=== PATIENT | female | born 1975 | race Two or more races ===

== ENCOUNTER → 2020-12-07 | Outpatient (CLI) | payer BC | END | disposition home or self-care (01) | LOC: XYW 15:17 | PROVIDERS: ATTEND Internal Medicine | DX: Z03.89 Encounter for observation for other suspected diseases and conditions ruled out (principal) | CPT/HCPCS: 71045; 78582; A9540; A9558 ==

== ENCOUNTER → 2020-12-11 | Outpatient (CLI) | payer BC ==
[2020-12-11 11:33] LABS: Potassium 3.8 mmol/L (3.5-5.1)
[2020-12-11 11:41] LABS: Albumin 3.8 g/dL (3.4-5.0); BUN/Creatinine Ratio 20.8; Bilirubin, Direct 0.3 mg/dL (0-0.2); Bilirubin, Total 1.2 mg/dL (0.2-1.0); Total Protein 7.7 g/dL (6.4-8.2)
[2020-12-11 13:08] LABS: Follicle Stimulating Hormone 36.13 IU/L (SEE BELOW); Leuteinizing Hormone 23.9 IU/L
[2020-12-12 07:07] LABS: RPR Non Reactive (Non Reactive)
== END | disposition home or self-care (01) ==
LOC: LAB 10:13
PROVIDERS: ATTEND Obstetrics & Gynecology
DX: N95.1 Menopausal and female climacteric states (principal); Z20.2 Contact with and (suspected) exposure to infections with a predominantly sexual mode of transmission
CPT/HCPCS: 36415; 80048; 80076; 82670; 83001; 83002; 84403; 84443; 86592; 86703

== ENCOUNTER → 2021-01-05 | Outpatient (CLI) | payer BC ==
[2021-01-05 12:01] LABS: Albumin 3.6 g/dL (3.4-5.0)
[2021-01-05 12:06] LABS: Bilirubin, Direct 0.2 mg/dL (0-0.2); Bilirubin, Total 0.7 mg/dL (0.2-1.0); Total Protein 7.3 g/dL (6.4-8.2)
== END | disposition home or self-care (01) ==
LOC: LAB 10:39
PROVIDERS: ATTEND Internal Medicine
DX: E78.5 Hyperlipidemia, unspecified (principal)
CPT/HCPCS: 36415; 80061; 80076

== ENCOUNTER → 2021-01-16 | Outpatient (CLI) | payer BC ==
[2021-01-16 14:07] LABS: Urine Bacteria FEW /hpf (None Seen); Urine Blood Negative /uL (Negative); Urine Hyaline Cast FEW /lpf (0 - 2); Urine Mucus FEW (None Seen); Urine Specific Gravity 1.025 (1.001-1.035); Urine WBC 3 /hpf (0 - 5)
[2021-01-16 14:39] LABS: BUN/Creatinine Ratio 14.5; Calcium 8.9 mg/dL (8.5-10.1); Potassium 4.3 mmol/L (3.5-5.1)
== END | disposition home or self-care (01) ==
LOC: LAB 13:40
PROVIDERS: ATTEND Internal Medicine
DX: R42 Dizziness and giddiness (principal); R10.9 Unspecified abdominal pain
CPT/HCPCS: 36415; 80048; 81001; 82150; 83690

== ENCOUNTER → 2021-02-06 | Outpatient (CLI) | payer BC | END | disposition home or self-care (01) | LOC: XY 08:20 | PROVIDERS: ATTEND Internal Medicine | DX: I51.7 Cardiomegaly (principal); E78.5 Hyperlipidemia, unspecified | CPT/HCPCS: 93306 ==

== ENCOUNTER 2021-03-22 10:18 | Day surgery (SDC) | payer BC ==
[2021-03-19 13:16] LABS: Basophils # (auto) 0 10 ^3/uL (0-0.2); Basophils % (auto) 0.6 % (0.0-2.0); Eosinophils # (auto) 0.2 10 ^3/uL (0-0.8); Eosinophils % (auto) 3.4 % (0.0-7.0); Hematocrit 37.7 % (36.0-46.0); Hemoglobin 12.9 g/dL (12.2-16.2); Lymphocytes # (auto) 2.3 10 ^3/uL (0.4-5.4); Lymphocytes % (auto) 34.1 % (10.0-50.0); Mean Corpuscular Hemoglobin 30.5 pg (28.0-32.0); Mean Corpuscular Hgb Conc. 34.2 g/dL (32.0-36.0); Mean Corpuscular Volume 89.1 fL (80.0-100.0); Monocytes # (auto) 0.5 10 ^3/uL (0-1.3); Monocytes % (auto) 7.4 % (0.0-12.0); Neutrophils # (auto) 3.7 10 ^3/uL (1.6-8.6); Neutrophils % (auto) 54.5 % (37.0-80.0); Nucleated Red Blood Cells % 0.1 %; Platelet Count (auto) 316 10^3/uL (140-450); Red Blood Cells 4.24 10^6/uL (4.0-5.20); Red Cell Distribution Width 13.4 % (11.8-14.3); White Blood Cell 6.7 10^3/uL (4.4-10.8)
[2021-03-19 13:26] LABS: Urine Bacteria NONE SEEN /hpf (None Seen); Urine Blood Negative /uL (Negative); Urine Specific Gravity 1.025 (1.001-1.035); Urine WBC 1 /hpf (0 - 5)
[2021-03-19 15:20] LABS: Albumin 3.7 g/dL (3.4-5.0); Calcium 8.8 mg/dL (8.5-10.1); Potassium 4.4 mmol/L (3.5-5.1)
[2021-03-19 15:23] LABS: Bilirubin, Total 0.4 mg/dL (0.2-1.0); Total Protein 7.5 g/dL (6.4-8.2)
[~2021-03-22] VITALS: Ht 170.2 cm; Wt 108.4 kg
[~2021-03-22 10:18] MED LIST: ASPI-231 PO; ATOR10TA PO; LISI20TA28 PO; METO25TA93 PO; PANT1INJ3 PO
[2021-03-22] MEDS ORDERED: LIDOCAINE VISCOUS 2% 15ML UD ONE (10:28)
[2021-03-22] MEDS ORDERED: SODIUM CHLORIDE LOCK 10 ML ONE (10:28)
[2021-03-22] MEDS: diphenhdrAMINE HCL 50 MG/1 ML VL ONE ×2 (11:57→12:00)
[2021-03-22] MEDS: fentaNYL CITRATE 100 MCG/2 ML VL ONE ×2 (11:57→12:00)
[2021-03-22] MEDS: MIDAZOLAM HCL 5 MG/ML-1ML VIAL ONE ×2 (11:57→12:00)
[2021-03-22 12:40] VITALS: BP 110/71
== END 2021-03-22 12:50 | disposition home or self-care (01) ==
LOC: GI 10:18
PROVIDERS: ATTEND Internal Medicine Gastroenterology
DX: K21.9 Gastro-esophageal reflux disease without esophagitis (principal); B37.81 Candidal esophagitis; I10 Essential (primary) hypertension; E78.00 Pure hypercholesterolemia, unspecified; G47.30 Sleep apnea, unspecified; Z20.822 Contact with and (suspected) exposure to COVID-19; Z79.82 Long term (current) use of aspirin; Z79.899 Other long term (current) drug therapy; Z88.2 Allergy status to sulfonamides; Z68.37 Body mass index [BMI] 37.0-37.9, adult
CPT/HCPCS: 36415; 43239; 80053; 81001; 81025; 84702; 85025; J1200; J2250; J3010; J7030; U0003; 99152

== ENCOUNTER → 2022-06-06 | Outpatient (CLI) | payer MEDICAID ==
[~2022-06-06] MED LIST changes: -ASPI-231 PO; +ASPI1TAB20 PO
[2022-06-06 10:22] LABS: Basophils # (auto) 0 10 ^3/uL (0-0.2); Basophils % (auto) 0.5 % (0.0-2.0); Eosinophils # (auto) 0.1 10 ^3/uL (0-0.8); Eosinophils % (auto) 2.1 % (0.0-7.0); Hematocrit 37.5 % (36.0-46.0); Hemoglobin 12.3 g/dL (12.2-16.2); Lymphocytes # (auto) 1.7 10 ^3/uL (0.4-5.4); Lymphocytes % (auto) 33.1 % (10.0-50.0); Mean Corpuscular Hemoglobin 27.2 pg (28.0-32.0); Mean Corpuscular Hgb Conc. 32.9 g/dL (32.0-36.0); Mean Corpuscular Volume 82.5 fL (80.0-100.0); Monocytes # (auto) 0.3 10 ^3/uL (0-1.3); Neutrophils # (auto) 3.1 10 ^3/uL (1.6-8.6); Neutrophils % (auto) 58.3 % (37.0-80.0); Red Blood Cells 4.54 10^6/uL (4.0-5.20); Red Cell Distribution Width 13.7 % (11.8-14.3); White Blood Cell 5.2 10^3/uL (4.4-10.8)
[2022-06-06 10:36] LABS: Calcium 9.2 mg/dL (8.5-10.1); Potassium 4.3 mmol/L (3.5-5.1)
[2022-06-06 10:46] LABS: Albumin 3.8 g/dL (3.4-5.0); BUN/Creatinine Ratio 18.8; Bilirubin, Total 0.5 mg/dL (0.2-1.0); Total Protein 7.1 g/dL (6.4-8.2)
== END | disposition home or self-care (01) ==
LOC: LAB 09:52
PROVIDERS: ATTEND Internal Medicine
DX: E66.9 Obesity, unspecified (principal); N91.2 Amenorrhea, unspecified
CPT/HCPCS: 36415; 80053; 80061; 83036; 85025

== ENCOUNTER → 2022-06-18 | Outpatient (CLI) | payer MEDICAID ==
[2022-06-18 10:29] LABS: Basophils # (auto) 0 10 ^3/uL (0-0.2); Basophils % (auto) 0.8 % (0.0-2.0); Eosinophils # (auto) 0.2 10 ^3/uL (0-0.8); Eosinophils % (auto) 3.9 % (0.0-7.0); Hematocrit 38.5 % (36.0-46.0); Hemoglobin 12.6 g/dL (12.2-16.2); Lymphocytes # (auto) 1.9 10 ^3/uL (0.4-5.4); Lymphocytes % (auto) 35.2 % (10.0-50.0); Mean Corpuscular Hemoglobin 26.7 pg (28.0-32.0); Mean Corpuscular Hgb Conc. 32.6 g/dL (32.0-36.0); Mean Corpuscular Volume 81.6 fL (80.0-100.0); Monocytes # (auto) 0.4 10 ^3/uL (0-1.3); Monocytes % (auto) 7.1 % (0.0-12.0); Neutrophils # (auto) 2.9 10 ^3/uL (1.6-8.6); Red Blood Cells 4.72 10^6/uL (4.0-5.20); Red Cell Distribution Width 13.8 % (11.8-14.3); White Blood Cell 5.5 10^3/uL (4.4-10.8)
[2022-06-18 11:34] LABS: Follicle Stimulating Hormone 52.6 IU/L (SEE BELOW); Leuteinizing Hormone 22.2 IU/L
== END | disposition home or self-care (01) ==
LOC: LAB 10:15
PROVIDERS: ATTEND Obstetrics & Gynecology
DX: N93.9 Abnormal uterine and vaginal bleeding, unspecified (principal)
CPT/HCPCS: 36415; 82670; 83001; 83002; 84403; 84443; 85025

== ENCOUNTER → 2022-09-03 | Outpatient (CLI) | payer MEDICAID ==
[2022-09-03 11:22] LABS: Cholesterol 137 mg/dL (< 200); HDL Cholesterol 51 mg/dL (40-59); LDL Cholesterol 84 mg/dL (< 100); Triglycerides 43 mg/dL (< 150)
== END | disposition home or self-care (01) ==
LOC: LAB 10:06
PROVIDERS: ATTEND Internal Medicine
DX: D17.71 Benign lipomatous neoplasm of kidney (principal); R73.03 Prediabetes
CPT/HCPCS: 36415; 80061; 82043; 83036

== ENCOUNTER 2022-09-17 13:12 | Day surgery (SDC) | payer MEDICAID ==
[2022-09-15 12:07] LABS: Basophils # (auto) 0 10 ^3/uL (0-0.2); Eosinophils # (auto) 0.2 10 ^3/uL (0-0.8); Hematocrit 38.7 % (36.0-46.0); Hemoglobin 12.7 g/dL (12.2-16.2); Lymphocytes # (auto) 2.1 10 ^3/uL (0.4-5.4); Monocytes # (auto) 0.4 10 ^3/uL (0-1.3); Neutrophils # (auto) 2.8 10 ^3/uL (1.6-8.6)
[2022-09-15 12:08] LABS: Basophils % (auto) 0.3 % (0.0-2.0); Eosinophils % (auto) 3.4 % (0.0-7.0); Lymphocytes % (auto) 38.3 % (10.0-50.0); Mean Corpuscular Hemoglobin 26.7 pg (28.0-32.0); Mean Corpuscular Hgb Conc. 32.7 g/dL (32.0-36.0); Mean Corpuscular Volume 81.5 fL (80.0-100.0); Red Blood Cells 4.75 10^6/uL (4.0-5.20); Red Cell Distribution Width 14.4 % (11.8-14.3); White Blood Cell 5.5 10^3/uL (4.4-10.8)
[2022-09-15 12:25] LABS: INR 1.01 (0.9-1.15); Partial Thromboplastin Time 27.9 sec (24.6-33.4)
[2022-09-15 13:33] LABS: Albumin 3.9 g/dL (3.4-5.0); BUN/Creatinine Ratio 15.8; Calcium 9.6 mg/dL (8.5-10.1); Potassium 4.2 mmol/L (3.5-5.1)
[2022-09-15 13:36] LABS: Bilirubin, Total 0.6 mg/dL (0.2-1.0)
[~2022-09-17] VITALS: Ht 170.2 cm; Wt 95.3 kg
[~2022-09-17 13:12] MED LIST changes: -ASPI1TAB20 PO; +METF-370 PO
[2022-09-17] MEDS ORDERED: SODIUM CHLORIDE LOCK 10 ML ONE (14:57)
[2022-09-17] MEDS ORDERED: fentaNYL CITRATE 100 MCG/2 ML VL ONE (14:58)
[2022-09-17] MEDS: diphenhdrAMINE HCL 50 MG/1 ML VL ONE ×2 (15:05→15:07)
[2022-09-17] MEDS: MIDAZOLAM HCL 5 MG/ML-1ML VIAL ONE ×3 (15:05→15:11)
[2022-09-17] MEDS: fentaNYL CITRATE 100 MCG/2 ML VL ONE ×2 (15:08→15:14)
[2022-09-17 16:12] VITALS: BP 112/63
== END 2022-09-17 16:17 | disposition home or self-care (01) ==
LOC: GI 13:12
PROVIDERS: ATTEND Internal Medicine Gastroenterology
DX: K62.5 Hemorrhage of anus and rectum (principal); K57.30 Diverticulosis of large intestine without perforation or abscess without bleeding; K64.8 Other hemorrhoids; K63.5 Polyp of colon; K62.89 Other specified diseases of anus and rectum; K21.9 Gastro-esophageal reflux disease without esophagitis; I10 Essential (primary) hypertension; Z79.899 Other long term (current) drug therapy; Z98.890 Other specified postprocedural states; Z20.822 Contact with and (suspected) exposure to COVID-19
CPT/HCPCS: 36415; 45380; 80053; 81025; 82962; 84702; 85025; 85610; 85730; 88305; 88342; J1200; J2250; J3010; J7030; U0003; 99152

== ENCOUNTER → 2022-10-01 | Outpatient (CLI) | payer MEDICAID ==
[2022-10-01 13:35] LABS: Eosinophils % (auto) 2.9 % (0.0-7.0); Lymphocytes % (auto) 39.9 % (10.0-50.0); Monocytes % (auto) 7.9 % (0.0-12.0); Neutrophils % (auto) 48.9 % (37.0-80.0); White Blood Cell 5.2 10^3/uL (4.4-10.8)
[2022-10-01 13:36] LABS: Basophils # (auto) 0 10 ^3/uL (0-0.2); Basophils % (auto) 0.4 % (0.0-2.0); Eosinophils # (auto) 0.1 10 ^3/uL (0-0.8); Hematocrit 38.8 % (36.0-46.0); Hemoglobin 12.4 g/dL (12.2-16.2); Lymphocytes # (auto) 2.1 10 ^3/uL (0.4-5.4); Monocytes # (auto) 0.4 10 ^3/uL (0-1.3); Neutrophils # (auto) 2.6 10 ^3/uL (1.6-8.6); Red Blood Cells 4.73 10^6/uL (4.0-5.20)
[2022-10-01 13:37] LABS: Mean Corpuscular Hemoglobin 26.3 pg (28.0-32.0)
[2022-10-01 13:38] LABS: Red Cell Distribution Width 14.1 % (11.8-14.3)
[2022-10-01 16:19] LABS: Alanine Aminotransferase 24 U/L (13-56); Albumin 3.9 g/dL (3.4-5.0); Anion Gap 8 (5-15); Aspartate Aminotransferase 21 U/L (15-37); BUN/Creatinine Ratio 16.2; Blood Urea Nitrogen 12 mg/dL (7-18); Calcium 9.1 mg/dL (8.5-10.1); Carbon Dioxide 28 mmol/L (21-32); Chloride 106 mmol/L (98-107); GFR African American 109 mL/min; GFR Non-African American 90 mL/min; Glucose 84 mg/dL (74-106); Potassium 3.9 mmol/L (3.5-5.1); Sodium 142 mmol/L (136-145)
[2022-10-01 16:22] LABS: Alkaline Phosphatase 72 U/L (45-117); Bilirubin, Total 0.9 mg/dL (0.2-1.0); Total Protein 7.2 g/dL (6.4-8.2)
[2022-10-02 13:49] LABS: Hepatitis C Antibody Negative (Negative)
== END | disposition home or self-care (01) ==
LOC: LAB 11:32
PROVIDERS: ATTEND Internal Medicine Gastroenterology
DX: R94.5 Abnormal results of liver function studies (principal)
CPT/HCPCS: 36415; 80053; 85025; 86038; 86803; 87340

== ENCOUNTER 2022-10-03 13:09 | Day surgery (SDC) | payer MEDICAID ==
[2022-10-01 11:45] LABS: Basophils # (auto) 0 10 ^3/uL (0-0.2); Basophils % (auto) 0.6 % (0.0-2.0); Eosinophils # (auto) 0.2 10 ^3/uL (0-0.8); Eosinophils % (auto) 3.2 % (0.0-7.0); Hemoglobin 12.4 g/dL (12.2-16.2); Lymphocytes % (auto) 38.8 % (10.0-50.0); Mean Corpuscular Hemoglobin 27.4 pg (28.0-32.0); Mean Corpuscular Hgb Conc. 33.6 g/dL (32.0-36.0); Mean Corpuscular Volume 81.4 fL (80.0-100.0); Monocytes # (auto) 0.4 10 ^3/uL (0-1.3); Monocytes % (auto) 6.8 % (0.0-12.0); Neutrophils # (auto) 2.6 10 ^3/uL (1.6-8.6); Neutrophils % (auto) 50.6 % (37.0-80.0); Red Blood Cells 4.54 10^6/uL (4.0-5.20); Red Cell Distribution Width 14.3 % (11.8-14.3); White Blood Cell 5.2 10^3/uL (4.4-10.8)
[2022-10-01 12:01] LABS: INR 1.03 (0.9-1.15); Partial Thromboplastin Time 29.7 sec (24.6-33.4)
[2022-10-01 12:27] LABS: BUN/Creatinine Ratio 16.2; Calcium 9.4 mg/dL (8.5-10.1); Potassium 4.2 mmol/L (3.5-5.1)
[2022-10-01 12:30] LABS: Bilirubin, Total 0.9 mg/dL (0.2-1.0); Total Protein 7.4 g/dL (6.4-8.2)
[~2022-10-03] VITALS: Ht 170.2 cm; Wt 95.3 kg
[2022-10-03] MEDS ORDERED: LIDOCAINE 2%HCL (LOCAL ANESTH.) INJ 10ml MDV ONE (14:27)
[2022-10-03] MEDS ORDERED: PROPOFOL 10 MG/ML 20 ML IV ONE ×2 (14:29→14:55)
[2022-10-03 15:32] VITALS: BP 124/66
== END 2022-10-03 15:46 | disposition home or self-care (01) ==
LOC: GI 13:09
PROVIDERS: ATTEND Internal Medicine Gastroenterology
DX: K21.9 Gastro-esophageal reflux disease without esophagitis (principal); K44.9 Diaphragmatic hernia without obstruction or gangrene; K29.50 Unspecified chronic gastritis without bleeding; Z20.822 Contact with and (suspected) exposure to COVID-19; E11.9 Type 2 diabetes mellitus without complications; Z79.84 Long term (current) use of oral hypoglycemic drugs
CPT/HCPCS: 36415; 43239; 80053; 81025; 82962; 84702; 85025; 85610; 85730; J2001; J2704; J7030; U0003

== ENCOUNTER → 2023-04-28 | Outpatient (CLI) | payer MEDICAID ==
[~2023-04-28] MED LIST changes: -LISI20TA28 PO; +LISI20TA56 PO
[2023-04-28 13:37] LABS: Cholesterol 148 mg/dL (< 200); HDL Cholesterol 51 mg/dL (40-59); LDL Cholesterol 81 mg/dL (< 100); Triglycerides 68 mg/dL (< 150)
== END | disposition home or self-care (01) ==
LOC: LAB 12:29
PROVIDERS: ATTEND Internal Medicine
DX: E78.5 Hyperlipidemia, unspecified (principal); R73.03 Prediabetes
CPT/HCPCS: 36415; 80061; 83036; 84443

== ENCOUNTER → 2023-07-22 | Outpatient (CLI) | payer MEDICAID ==
[2023-07-22 12:44] LABS: Anion Gap 1 (5-15); Carbon Dioxide 32 mmol/L (20-30); Chloride 105 mmol/L (98-107); Sodium 138 mmol/L (136-145)
[2023-07-22 12:45] LABS: Calcium 9.6 mg/dL (8.5-10.1)
[2023-07-22 12:50] LABS: BUN/Creatinine Ratio 15.4 (10.0-20.0); Blood Urea Nitrogen 10 mg/dL (9-23); Glucose 97 mg/dL (74-106); Triglycerides 92 mg/dL (< 150)
[2023-07-22 12:51] LABS: CRP High Sensitivity 0.19 mg/dL (<1.0); LDL Cholesterol 81 mg/dL (< 100)
[2023-07-22 12:52] LABS: Cholesterol 144 mg/dL (< 200); HDL Cholesterol 52 mg/dL (40-59)
[2023-07-22 12:54] LABS: Folate (Folic Acid) 11.4 ng/mL (>5.38)
[2023-07-22 13:18] LABS: Creatinine, Urine 102.89 mg/dL (30.0-125.0)
[2023-07-22 13:20] LABS: Erythrocyte Sedimentation Rate 12 mm/hr (0-20); Micro Albumin < 3.0 mg/L (<30.0)
[2023-07-23 08:06] LABS: RPR Non Reactive (Non Reactive)
== END | disposition home or self-care (01) ==
LOC: LAB 12:12
PROVIDERS: ATTEND Internal Medicine
DX: E78.5 Hyperlipidemia, unspecified (principal); R73.03 Prediabetes; F41.9 Anxiety disorder, unspecified
CPT/HCPCS: 36415; 80048; 80061; 82043; 82570; 82607; 82746; 83036; 85652; 86141; 86592

== ENCOUNTER → 2024-08-22 | Outpatient (CLI) | payer MEDICAID ==
[2024-08-22 11:32] LABS: Basophils # (auto) 0 10 ^3/uL (0-0.2); Basophils % (auto) 0.7 % (0.0-2.0); Eosinophils # (auto) 0.4 10 ^3/uL (0-0.8); Eosinophils % (auto) 6.3 % (0.0-7.0); Hematocrit 38.1 % (36.0-46.0); Hemoglobin 12.7 g/dL (12.2-16.2); Lymphocytes # (auto) 2.2 10 ^3/uL (0.4-5.4); Lymphocytes % (auto) 36.6 % (10.0-50.0); Mean Corpuscular Hemoglobin 27.7 pg (28.0-32.0); Mean Corpuscular Hgb Conc. 33.2 g/dL (32.0-36.0); Mean Corpuscular Volume 83.4 fL (80.0-100.0); Monocytes # (auto) 0.4 10 ^3/uL (0-1.3); Neutrophils % (auto) 49.4 % (37.0-80.0); Nucleated Red Blood Cells % 0.1 %; Platelet Count (auto) 292 10^3/uL (140-450); Red Blood Cells 4.57 10^6/uL (4.0-5.20); Red Cell Distribution Width 13.7 % (11.8-14.3)
[2024-08-22 11:59] LABS: % Iron Saturation 20.8 % (15-50); Beta HCG, Quantitative 4.6 mIU/mL (1.5-4.2)
[2024-08-22 12:01] LABS: Alanine Aminotransferase 18 U/L (7-40); Albumin 4.5 g/dL (3.2-4.8); Alkaline Phosphatase 77 U/L (46-116); Anion Gap 6 (5-15); Aspartate Aminotransferase 16 U/L (13-40); BUN/Creatinine Ratio 13.1 (10.0-20.0); Blood Urea Nitrogen 11 mg/dL (9-23); Calcium 10.1 mg/dL (8.7-10.4); Carbon Dioxide 29 mmol/L (20-31); Chloride 107 mmol/L (98-107); Glucose 97 mg/dL (74-106); Potassium 4.1 mmol/L (3.5-5.1); Sodium 142 mmol/L (136-145)
[2024-08-22 12:02] LABS: Bilirubin, Total 0.6 mg/dL (0.2-1.0)
[2024-08-22 12:03] LABS: Thyroid Stimulating Hormone 0.98 uIU/mL (0.55-4.78)
[2024-08-23 09:07] LABS: Estradiol <5.0 pg/mL (.); Testosterone 25 ng/dL (4-50)
[2024-08-23 12:16] LABS: Ferritin 28.8 ng/mL (10-291); Follicle Stimulating Hormone 88.92 IU/L (SEE BELOW)
[2024-08-23 12:17] LABS: Folate (Folic Acid) 15.25 ng/mL (>5.38); Leuteinizing Hormone 49.9 IU/L; Prolactin 8.49 ng/mL (2.8-29.2)
== END | disposition home or self-care (01) ==
LOC: LAB 10:36
DX: E28.2 Polycystic ovarian syndrome (principal); D64.9 Anemia, unspecified; Z87.42 Personal history of other diseases of the female genital tract
CPT/HCPCS: 36415; 80053; 82607; 82670; 82728; 82746; 83001; 83002; 83540; 83550; 84146; 84402; 84403; 84439; 84443; 84702; 85025

== ENCOUNTER → 2024-09-14 | Outpatient (CLI) | payer MEDICAID ==
[2024-09-14 16:17] LABS: Urine Bacteria None Seen /hpf (None Seen)
[2024-09-14 17:02] LABS: Urine Blood Negative /uL (Negative); Urine Clarity Clear (Clear); Urine Color Yellow (Yellow); Urine Mucus FEW (None Seen); Urine Protein, UAD Negative (Negative); Urine Urobilinogen Normal (Negative); Urine WBC 1 /hpf (0 - 5); Urine pH 5.5 (5.0-9.0)
== END | disposition home or self-care (01) ==
LOC: LAB 16:13
PROVIDERS: ATTEND Internal Medicine Gastroenterology
DX: N39.0 Urinary tract infection, site not specified (principal)
CPT/HCPCS: 81001; 87086

== ENCOUNTER 2025-05-23 12:15 | Outpatient (CLI) | payer MEDICAID ==
[2025-05-23 13:13] LABS: Triglycerides 78 mg/dL (< 150)
[2025-05-23 13:15] LABS: Cholesterol 138 mg/dL (< 200); HDL Cholesterol 44 mg/dL (40-59)
== END 2025-05-23 17:00 | disposition home or self-care (01) ==
LOC: LAB 12:15
PROVIDERS: ATTEND Internal Medicine
DX: E78.5 Hyperlipidemia, unspecified (principal)
CPT/HCPCS: 36415; 80061; 84443